=== PATIENT | male | born 1965 | race Caucasian/White ===

== ENCOUNTER 2016-10-01 11:04 | Inpatient (IN) ==
--- NOTE | 2016-10-01 11:34 | Emergency Department Note ---
Disposition Clinical Impression: Hyperglycemia, Weakness Disposition: Admitted As Inpatient Condition: Good Referrals: Nirali Russell, MUSEUM OR ZOO DIRECTOR [Primary Care Provider] - Forms: ED Satisfaction Letter Time of Disposition: 13:51 (abprateek de jesus) Weakness HPI - General Chief complaint: ED Altered Mental Status Stated complaint: found on floor in home/ LKW 2 days ago Time Seen by Provider: 10/01/16 11:09 Source: EMS Mode of arrival: EMS Limitations: altered mental status Nursing Notes Reviewed: Yes Vital Signs Reviewed: Yes - History of Present Illness HPI Narrative: Patient last seen last known well Jeet 2 weeks ago friends and family were concerned without check on him found him lying on the floor emaciated wasting patient admits that she has not been elevated has not felt well denies any physical trauma states he has missed insulin he denies additional complaints at this time other than being weak unable to get up and move about Pt Subjective Complaint: generalized weakness/fatigue Onset (ago): week(s) Duration: gradually worsening Location: generalized Pain Severity: none Pain Scale: 0 Improves with: none Worsens with: none Associated symptoms: Reports: loss of appetite, nausea/vomiting, myalgias. Denies: chest pain, confusion, dark stools, diaphoresis, dysuria, easy bruising , fever/chills, headaches, rash, shortness of breath, syncope - Related Data Home Medications Medication Instructions Recorded Confirmed Insulin Glargine,Hum.rec.anlog 30 units SQ HS 04/18/16 06/07/16 [Lantus Solostar] Tiotropium [Spiriva] 1 cap IH DAILY 04/18/16 06/07/16 metFORMIN [Glucophage] 500 mg PO BIDWM 04/18/16 06/07/16 Albuterol Sulfate [Ventolin Hfa] 2 puff IH Q4H PRN 06/07/16 06/07/16 Gabapentin [Neurontin] 400 mg PO TID 06/07/16 06/07/16 HYDROcodone/Acet 10/325 mg [[place] 1 tab PO Q12H PRN 06/07/16 06/07/16 10-325 mg] Insulin ASPART [Novolog Flexpen] 0 unit SQ TIDWM 06/07/16 06/07/16 Omeprazole [PriLOSEC] 20 mg PO DAILY 06/07/16 06/07/16 Allergies Allergy/AdvReac Type Severity Reaction Status Date / Time No Known Allergies Allergy Verified 06/07/16 07:36 All systems ED: reviewed and negative except as stated. Constitutional: Reports: weakness. Denies: fever, chills Eyes: Denies: eye pain ENT ED: Denies: ear pain, throat pain Cardiovascular: Denies: chest pain, palpitations, dyspnea on exertion Respiratory: Denies: cough, dyspnea, wheezes Gastrointestinal: Denies: abdominal pain, nausea, vomiting Genitourinary: Denies: urgency, dysuria, frequency Musculoskeletal: Denies: back pain Integumentary: Denies: lesions Neurological: Reports: weakness. Denies: headache Psychiatric: Denies: anxiety Endocrine: Reports: fatigue, polydipsia, polyuria Hematological/Lymphatic: Denies: easy bleeding Allergic/Immunologic: Denies: facial swelling Past Medical History - Past Medical History Attestation: Yes The following information was validated with the patient. Source: patient, old records reviewed, nursing notes reviewed Medical history: Reports: asthma, COPD, diabetes, GERD, hyperlipidemia Surgical history: Reports: no surgical history Psychiatric history: Reports: anxiety, depression - Social History Smoking Status: Current every day smoker Smokeless Tobacco Status: No Alcohol use: Reports: none Drug use: Reports: none Physical Exam - General Limitations: altered mental status General appearance: alert, in no apparent distress, cachectic - Head Head exam: atraumatic, normocephalic, normal inspection - Eye Eye exam: Present: normal appearance, PERRL, EOMI - ENT ENT exam: normal exam, normal oropharynx, mucous membranes moist, normal external ear exam - Neck Neck exam: Present: normal inspection, full ROM, trachea midline - Chest Chest inspection: Present: normal inspection, symmetric chest wall rise - Respiratory Respiratory exam: Present: normal lung sounds bilaterally - Cardiovascular Cardiovascular exam: Present: regular rate, normal rhythm, normal heart sounds - Abdominal Exam Abdominal exam: Present: soft, Non-Tender, normal bowel sounds, other (schaphoid ) - Extremities Exam Extremities exam: Present: normal inspection, full ROM, normal capillary refill. Absent: tenderness, joint swelling - Expanded Lower Extremity Exam Neurovascular/Tendon exam: Present: normal capillary refill, normal fine/light touch Gait: observed and normal - Back Exam Back exam: Present: normal inspection, full ROM. Absent: muscle spasm - Neurological Exam Neurological exam: Present: alert, oriented X3, CN II-XII intact - Psychiatric Psychiatric exam: Present: normal affect, normal mood - Skin Skin exam: Present: warm, dry, intact, normal color Course Course Narrative: Patient was seen and examined patient was given multiple blankets and warm, patient's actually been very cooperative asked for something to eat and transferred to [facility] for further management to get his diabetes under control Dr Estrada agreed Vital Signs Temperature 98.9 F 10/01/16 11:07 Pulse Rate 87 10/01/16 11:07 Respiratory Rate 18 10/01/16 11:07 Blood Pressure 104/82 10/01/16 11:07 O2 Sat by Pulse Oximetry 98 10/01/16 11:07 Temperature 98.9 F 10/01/16 11:07 Pulse Rate 76 10/01/16 13:07 Respiratory Rate 18 10/01/16 13:07 Blood Pressure 125/84 10/01/16 13:07 O2 Sat by Pulse Oximetry 98 10/01/16 13:07 Oxygen Delivery Oxygen Delivery Room Air Weakness - MDM Narrative Medical decision making narrative: hyperglycemia - Differential Diagnosis Differential Diagnosis: Likely: sepsis/infection, dehydration, medication effect , stroke, metabolic, thyroid/endocrine disorder - Medical Records Medical records reviewed: Yes I reviewed the patient's medical records. - Lab Data Lab results reviewed: Yes I reviewed the patient's lab results. Result diagrams: 10/01/16 11:40 10/01/16 11:40 Lab Results 10/01/16 10/01/16 10/01/16 Range/Units 11:30 11:30 11:40 WBC 7.6 (4.3-11.1) K/mcL RBC 5.03 (4.19-5.50) M/mcL Hgb 16.5 (12.9-16.9) g/dL Hct 46.7 (37.5-50.1) % MCV 92.8 (83.0-100.0) fL MCH 32.8 (28.0-33.3) pg MCHC 35.3 (31.6-35.5) g/dL RDW 11.6 (11.5-14.5) % Plt Count 275 (140-400) K/mcL MPV 9.5 (9.4-12.4) fL Immature Gran % 0.3 (0-4) % Seg Neutrophils % 63.9 % Lymphocytes % 30.6 % Monocytes % 4.5 % Eosinophils % 0.3 % Basophils % 0.4 % Neutrophils # 4.8 (1.6-8.9) K/mcL Lymphocytes # 2.3 (0.6-4.6) K/mcL Monocytes # 0.3 (0.0-1.3) K/mcL Eosinophils # 0.0 (0.0-0.6) K/mcL Basophils # 0.0 (0.0-0.2) K/mcL PT (9.4-12.1) Seconds INR APTT (26.0-36.0) Seconds VBG Lactic Acid (0.5-2.2) mmol/L Sodium (136-145) mEq/L Potassium (3.5-4.5) mEq/L Chloride (98-109) mEq/L Carbon Dioxide (19-29) mEq/L BUN (8-26) mg/dL Creatinine (0.72-1.25) mg/dL Est GFR ( Amer) (> 60) Est GFR (Non-Af Amer) (> 60) BUN/Creatinine Ratio (6-26) Glucose (70-99) mg/dL Calculated Osmolality (280-300) Calcium (8.6-10.8) mg/dL Total Bilirubin (0.2-1.2) mg/dL AST (5-34) Units/L ALT (0-55) Units/L Alkaline Phosphatase (38-126) Units/L Troponin I (0-0.03) ng/mL B-Natriuretic Peptide (0-100) pg/mL Serum Total Protein (6.0-8.3) g/dL Albumin (3.5-5.0) g/dL Globulin (2.4-3.5) g/dL Albumin/Globulin Ratio (1.1-2.2) Beta-Hydroxybutyric Acd (0.02-0.27) mmol/L TSH (0.350-4.840) mcIU/mL Urine Color Yellow (Yellow) Urine Clarity Clear (Clear) Urine pH 5.0 (5.0-8.0) pH Units Ur Specific [place] 1.010 (1.010-1.025) Urine Protein Negative (Neg-Trace) mg/dL Urine Glucose (UA) 500 H (Normal) mg/dL Urine Ketones 40 H (Negative) mg/dL Urine Blood Small H (Negative) Urine Nitrite Negative (Negative) Urine Bilirubin Negative (Negative) Urine Urobilinogen Normal (Normal) mg/dL Ur Leukocyte Esterase Negative (Negative) Urine Microscopic RBC 0-3 (0-3) per hpf Urine Microscopic WBC Test Not Performed Ur Squamous Epith Cells Few (None-Few) per lpf Urine Bacteria Few (None-Few) per hpf Urine Mucus Few (Few) Ur Culture Indicated? NO (NO) Urine Opiates Screen Positive H (Yrafqo=221) ng/mL Ur Oxycodone Screen Negative (Cutoff= 100) ng/mL Ur Barbiturates Screen Negative (Kxhpfj=503) ng/mL Ur Phencyclidine Scrn Negative (Cutoff=25) ng/mL Ur Amphetamines Screen Negative (Iaphvt=5478) ng/mL U Benzodiazepines Scrn Negative (Rkesov=565) ng/mL Urine Cocaine Screen Negative (Cutoff= 300) ng/mL U Marijuana (THC) Screen Negative (Cutoff = 50) ng/mL 10/01/16 10/01/16 10/01/16 Range/Units 11:40 11:40 11:40 WBC (4.3-11.1) K/mcL RBC (4.19-5.50) M/mcL Hgb (12.9-16.9) g/dL Hct (37.5-50.1) % MCV (83.0-100.0) fL MCH (28.0-33.3) pg MCHC (31.6-35.5) g/dL RDW (11.5-14.5) % Plt Count (140-400) K/mcL MPV (9.4-12.4) fL Immature Gran % (0-4) % Seg Neutrophils % % Lymphocytes % % Monocytes % % Eosinophils % % Basophils % % Neutrophils # (1.6-8.9) K/mcL Lymphocytes # (0.6-4.6) K/mcL Monocytes # (0.0-1.3) K/mcL Eosinophils # (0.0-0.6) K/mcL Basophils # (0.0-0.2) K/mcL PT 10.7 (9.4-12.1) Seconds INR 1.0 APTT 26.9 (26.0-36.0) Seconds VBG Lactic Acid (0.5-2.2) mmol/L Sodium (136-145) mEq/L Potassium (3.5-4.5) mEq/L Chloride (98-109) mEq/L Carbon Dioxide (19-29) mEq/L BUN (8-26) mg/dL Creatinine (0.72-1.25) mg/dL Est GFR ( Amer) (> 60) Est GFR (Non-Af Amer) (> 60) BUN/Creatinine Ratio (6-26) Glucose (70-99) mg/dL Calculated Osmolality (280-300) Calcium (8.6-10.8) mg/dL Total Bilirubin (0.2-1.2) mg/dL AST (5-34) Units/L ALT (0-55) Units/L Alkaline Phosphatase (38-126) Units/L Troponin I (0-0.03) ng/mL B-Natriuretic Peptide 23 (0-100) pg/mL Serum Total Protein (6.0-8.3) g/dL Albumin (3.5-5.0) g/dL Globulin (2.4-3.5) g/dL Albumin/Globulin Ratio (1.1-2.2) Beta-Hydroxybutyric Acd (0.02-0.27) mmol/L TSH (0.350-4.840) mcIU/mL Urine Color (Yellow) Urine Clarity (Clear) Urine pH (5.0-8.0) pH Units Ur Specific [place] (1.010-1.025) Urine Protein (Neg-Trace) mg/dL Urine Glucose (UA) (Normal) mg/dL Urine Ketones (Negative) mg/dL Urine Blood (Negative) Urine Nitrite (Negative) Urine Bilirubin (Negative) Urine Urobilinogen (Normal) mg/dL Ur Leukocyte Esterase (Negative) Urine Microscopic RBC (0-3) per hpf Urine Microscopic WBC Ur Squamous Epith Cells (None-Few) per lpf Urine Bacteria (None-Few) per hpf Urine Mucus (Few) Ur Culture Indicated? (NO) Urine Opiates Screen (Niztah=142) ng/mL Ur Oxycodone Screen (Cutoff= 100) ng/mL Ur Barbiturates Screen (Suztbh=871) ng/mL Ur Phencyclidine Scrn (Cutoff=25) ng/mL Ur Amphetamines Screen (Twfkou=5522) ng/mL U Benzodiazepines Scrn (Pypikc=867) ng/mL Urine Cocaine Screen (Cutoff= 300) ng/mL U Marijuana (THC) Screen (Cutoff = 50) ng/mL 10/01/16 10/01/16 10/01/16 Range/Units 11:40 11:40 11:40 WBC (4.3-11.1) K/mcL RBC (4.19-5.50) M/mcL Hgb (12.9-16.9) g/dL Hct (37.5-50.1) % MCV (83.0-100.0) fL MCH (28.0-33.3) pg MCHC (31.6-35.5) g/dL RDW (11.5-14.5) % Plt Count (140-400) K/mcL MPV (9.4-12.4) fL Immature Gran % (0-4) % Seg Neutrophils % % Lymphocytes % % Monocytes % % Eosinophils % % Basophils % % Neutrophils # (1.6-8.9) K/mcL Lymphocytes # (0.6-4.6) K/mcL Monocytes # (0.0-1.3) K/mcL Eosinophils # (0.0-0.6) K/mcL Basophils # (0.0-0.2) K/mcL PT (9.4-12.1) Seconds INR APTT (26.0-36.0) Seconds VBG Lactic Acid 1.9 (0.5-2.2) mmol/L Sodium 138 (136-145) mEq/L Potassium 4.4 (3.5-4.5) mEq/L Chloride 99 (98-109) mEq/L Carbon Dioxide 25 (19-29) mEq/L BUN 14 (8-26) mg/dL Creatinine 0.81 (0.72-1.25) mg/dL Est GFR ( Amer) > 60 (> 60) Est GFR (Non-Af Amer) > 60 (> 60) BUN/Creatinine Ratio 17 (6-26) Glucose 402 H (70-99) mg/dL Calculated Osmolality 303 H (280-300) Calcium 9.0 (8.6-10.8) mg/dL Total Bilirubin 0.4 (0.2-1.2) mg/dL AST 15 (5-34) Units/L ALT 35 (0-55) Units/L Alkaline Phosphatase 102 (38-126) Units/L Troponin I 0.00 (0-0.03) ng/mL B-Natriuretic Peptide (0-100) pg/mL Serum Total Protein 6.6 (6.0-8.3) g/dL Albumin 3.3 L (3.5-5.0) g/dL Globulin 3.3 (2.4-3.5) g/dL Albumin/Globulin Ratio 1.0 L (1.1-2.2) Beta-Hydroxybutyric Acd (0.02-0.27) mmol/L TSH 0.558 (0.350-4.840) mcIU/mL Urine Color (Yellow) Urine Clarity (Clear) Urine pH (5.0-8.0) pH Units Ur Specific [place] (1.010-1.025) Urine Protein (Neg-Trace) mg/dL Urine Glucose (UA) (Normal) mg/dL Urine Ketones (Negative) mg/dL Urine Blood (Negative) Urine Nitrite (Negative) Urine Bilirubin (Negative) Urine Urobilinogen (Normal) mg/dL Ur Leukocyte Esterase (Negative) Urine Microscopic RBC (0-3) per hpf Urine Microscopic WBC Ur Squamous Epith Cells (None-Few) per lpf Urine Bacteria (None-Few) per hpf Urine Mucus (Few) Ur Culture Indicated? (NO) Urine Opiates Screen (Cuslaa=847) ng/mL Ur Oxycodone Screen (Cutoff= 100) ng/mL Ur Barbiturates Screen (Grzcys=630) ng/mL Ur Phencyclidine Scrn (Cutoff=25) ng/mL Ur Amphetamines Screen (Xyagni=3276) ng/mL U Benzodiazepines Scrn (Wruopm=087) ng/mL Urine Cocaine Screen (Cutoff= 300) ng/mL U Marijuana (THC) Screen (Cutoff = 50) ng/mL 10/01/16 Range/Units 11:40 WBC (4.3-11.1) K/mcL RBC (4.19-5.50) M/mcL Hgb (12.9-16.9) g/dL Hct (37.5-50.1) % MCV (83.0-100.0) fL MCH (28.0-33.3) pg MCHC (31.6-35.5) g/dL RDW (11.5-14.5) % Plt Count (140-400) K/mcL MPV (9.4-12.4) fL Immature Gran % (0-4) % Seg Neutrophils % % Lymphocytes % % Monocytes % % Eosinophils % % Basophils % % Neutrophils # (1.6-8.9) K/mcL Lymphocytes # (0.6-4.6) K/mcL Monocytes # (0.0-1.3) K/mcL Eosinophils # (0.0-0.6) K/mcL Basophils # (0.0-0.2) K/mcL PT (9.4-12.1) Seconds INR APTT (26.0-36.0) Seconds VBG Lactic Acid (0.5-2.2) mmol/L Sodium (136-145) mEq/L Potassium (3.5-4.5) mEq/L Chloride (98-109) mEq/L Carbon Dioxide (19-29) mEq/L BUN (8-26) mg/dL Creatinine (0.72-1.25) mg/dL Est GFR ( Amer) (> 60) Est GFR (Non-Af Amer) (> 60) BUN/Creatinine Ratio (6-26) Glucose (70-99) mg/dL Calculated Osmolality (280-300) Calcium (8.6-10.8) mg/dL Total Bilirubin (0.2-1.2) mg/dL AST (5-34) Units/L ALT (0-55) Units/L Alkaline Phosphatase (38-126) Units/L Troponin I (0-0.03) ng/mL B-Natriuretic Peptide (0-100) pg/mL Serum Total Protein (6.0-8.3) g/dL Albumin (3.5-5.0) g/dL Globulin (2.4-3.5) g/dL Albumin/Globulin Ratio (1.1-2.2) Beta-Hydroxybutyric Acd 1.51 H (0.02-0.27) mmol/L TSH (0.350-4.840) mcIU/mL Urine Color (Yellow) Urine Clarity (Clear) Urine pH (5.0-8.0) pH Units Ur Specific [place] (1.010-1.025) Urine Protein (Neg-Trace) mg/dL Urine Glucose (UA) (Normal) mg/dL Urine Ketones (Negative) mg/dL Urine Blood (Negative) Urine Nitrite (Negative) Urine Bilirubin (Negative) Urine Urobilinogen (Normal) mg/dL Ur Leukocyte Esterase (Negative) Urine Microscopic RBC (0-3) per hpf Urine Microscopic WBC Ur Squamous Epith Cells (None-Few) per lpf Urine Bacteria (None-Few) per hpf Urine Mucus (Few) Ur Culture Indicated? (NO) Urine Opiates Screen (Funcgb=818) ng/mL Ur Oxycodone Screen (Cutoff= 100) ng/mL Ur Barbiturates Screen (Azntdc=259) ng/mL Ur Phencyclidine Scrn (Cutoff=25) ng/mL Ur Amphetamines Screen (Uoecrc=4038) ng/mL U Benzodiazepines Scrn (Snmtyz=734) ng/mL Urine Cocaine Screen (Cutoff= 300) ng/mL U Marijuana (THC) Screen (Cutoff = 50) ng/mL - Radiology Data Radiology results reviewed: Yes I reviewed the patient's radiology results. ITS Impressions Chest X-Ray 10/01/16 11:27 IMPRESSION: No acute process. D/ / 10/01/2016 12:48:16 Jonnathan Davis MD / Yolette Forrest Interpreting Provider: Jonnathan Davis MD Head CT 10/01/16 11:27 IMPRESSION: No hemorrhage or mass noted. 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 EKG results narrative: Sinus rhythm rate 82 [place] 137 QRS 89 QT 368 axis -87 Critical Care Time Critical Care Time: No
[2016-10-01 11:42] LABS: Bilirubin,Urine Negative (Negative); Blood,Urine Small (Negative); Clarity,Urine Clear (Clear); Color,Urine Yellow (Yellow); Glucose,Urine (UA) 500 mg/dL (Normal); Ketones,Urine 40 mg/dL (Negative); Leukocyte Esterase,Urine Negative (Negative); Nitrite,Urine Negative (Negative); Protein,Urine Negative (Neg-Trace); Urobilinogen,Urine Normal (Normal)
[2016-10-01 11:48] LABS: RBC,Urine 0-3 per hpf (0-3)
[2016-10-01 11:48] LABS: Basophils % 0.4 %; Eosinophils % 0.3 %; Hematocrit 46.7 % (37.5-50.1); Hemoglobin 16.5 g/dL (12.9-16.9); Immature Granulocytes % 0.3 % (0-4); Lymphocytes # 2.3 K/mcL (0.6-4.6); Lymphocytes % 30.6 %; Mean Corpuscular HGB Conc 35.3 g/dL (31.6-35.5); Mean Corpuscular Hemoglobin 32.8 pg (28.0-33.3); Mean Corpuscular Volume 92.8 fL (83.0-100.0); Mean Platelet Volume 9.5 fL (9.4-12.4); Monocytes # 0.3 K/mcL (0.0-1.3); Monocytes % 4.5 %; Neutrophils # 4.8 K/mcL (1.6-8.9); Platelet Count 275 K/mcL (140-400); Red Blood Count 5.03 M/mcL (4.19-5.50); Red Cell Distribution Width 11.6 % (11.5-14.5); Segmented Neutrophils % 63.9 %
[2016-10-01 11:49] LABS: Bacteria,Urine Few per hpf (None-Few); Mucus,Urine Few (Few); Squamous Epithelial Cell,Urine Few per lpf (None-Few)
[2016-10-01 11:54] LABS: Amphetamine Screen,Urine Negative ng/mL (Cutoff=1000); Barbiturate Screen,Urine Negative ng/mL (Cutoff=200); Benzodiazepines Screen,Urine Negative ng/mL (Cutoff=200); Cannabinoid Screen,Urine Negative ng/mL (Cutoff = 50); Cocaine Screen,Urine Negative ng/mL (Cutoff= 300); Opiate Screen,Urine Positive ng/mL (Cutoff=300); Phencyclidine Screen,Urine Negative ng/mL (Cutoff=25)
[2016-10-01 11:55] LABS: Prothrombin Time 10.7 Seconds (9.4-12.1)
[2016-10-01 12:03] LABS: Alanine Aminotransferase 35 Units/L (0-55); Albumin 3.3 g/dL (3.5-5.0); Alkaline Phosphatase 102 Units/L (38-126); Aspartate Amino Transferase 15 Units/L (5-34); BUN/Creatinine Ratio 17 (6-26); Bilirubin,Total 0.4 mg/dL (0.2-1.2); Blood Urea Nitrogen 14 mg/dL (8-26); Carbon Dioxide 25 mEq/L (19-29); Chloride 99 mEq/L (98-109); Globulin 3.3 g/dL (2.4-3.5); Glucose 402 mg/dL (70-99); Osmolality,Calculated 303 (280-300); Potassium 4.4 mEq/L (3.5-4.5); Sodium 138 mEq/L (136-145); Total Protein 6.6 g/dL (6.0-8.3); eGFR For African Americans > 60 (> 60); eGFR For Non-African Americans > 60 (> 60)
[2016-10-01] MEDS ORDERED: 0.9 % Sodium Chloride 1,000 ML IVC ONE (12:19)
[2016-10-01 12:23] LABS: Thyroid Stimulating Hormone 0.558 mcIU/mL (0.350-4.840)
[2016-10-01] MEDS ORDERED: *HR* HYDROcodone/Acet 10/325 mg TABLET PO PRN (14:20)
[2016-10-01] MEDS ORDERED: *HR* Dextrose 50 % in Water (Syg) 50 ML SYRINGE IVP PRN (14:20)
[2016-10-01] MEDS ORDERED: Dextrose Gel 15 GM PO PRN ×2 (14:20)
[2016-10-01] MEDS ORDERED: Ondansetron ODT 4 MG TAB.RAPDIS SL PRN (14:20)
[2016-10-01] MEDS ORDERED: Naloxone 0.4 MG/ML INJ IVP PRN (14:20)
[2016-10-01] MEDS ORDERED: D5% in Water 1,000 ML IVC PRN (14:20)
[2016-10-01] MEDS ORDERED: Gabapentin 400 MG CAPSULE PO SCH (15:00)
[2016-10-01] MEDS: 0.9 % Sodium Chloride 1,000 ML IVC SCH ×2 (15:55→23:30)
[2016-10-01] MEDS: *HR* Metformin 500 MG TABLET PO SCH (17:19)
[2016-10-01] MEDS: Insulin LISPRO 300 UNITS/3 ML VIAL SQ SCH (17:19)
[2016-10-01] MEDS: *HR* Morphine Sulfate SR (12 HR) 30 MG TABLET.ER PO SCH (20:23)
[2016-10-01] MEDS: Insulin DETEMIR 100 UNIT/ML X5UNITS SQ SCH (20:24)
[2016-10-01] MEDS: Pregabalin 75 MG CAPSULE PO SCH (20:24)
[2016-10-02 05:30] LABS: Basophils % 0.4 %; Eosinophils # 0.1 K/mcL (0.0-0.6); Hematocrit 41.6 % (37.5-50.1); Hemoglobin 14.8 g/dL (12.9-16.9); Immature Granulocytes % 0.5 % (0-4); Mean Corpuscular HGB Conc 35.6 g/dL (31.6-35.5); Mean Corpuscular Hemoglobin 32.7 pg (28.0-33.3); Mean Platelet Volume 9.5 fL (9.4-12.4); Monocytes # 0.6 K/mcL (0.0-1.3); Monocytes % 6.1 %; Neutrophils # 6.6 K/mcL (1.6-8.9); Platelet Count 255 K/mcL (140-400); Red Blood Count 4.52 M/mcL (4.19-5.50); Red Cell Distribution Width 11.5 % (11.5-14.5)
[2016-10-02 05:37] LABS: Prothrombin Time 10.6 Seconds (9.4-12.1)
[2016-10-02 05:39] LABS: Activated Partial Thrombo Time 27.4 Seconds (26.0-36.0)
[2016-10-02 05:48] LABS: BUN/Creatinine Ratio 32 (6-26); Blood Urea Nitrogen 20 mg/dL (8-26); Calcium 8.6 mg/dL (8.6-10.8); Carbon Dioxide 23 mEq/L (19-29); Chloride 101 mEq/L (98-109); Glucose 247 mg/dL (70-99); Osmolality,Calculated 291 (280-300); Potassium 4.2 mEq/L (3.5-4.5); Sodium 135 mEq/L (136-145); eGFR For African Americans > 60 (> 60); eGFR For Non-African Americans > 60 (> 60)
[2016-10-02] MEDS: Insulin LISPRO 300 UNITS/3 ML VIAL SQ SCH ×3 (07:50→16:38)
[2016-10-02] MEDS: *HR* Morphine Sulfate SR (12 HR) 30 MG TABLET.ER PO SCH ×3 (08:22→20:19)
[2016-10-02] MEDS: *HR* Metformin 500 MG TABLET PO SCH ×2 (08:22→16:42)
[2016-10-02] MEDS: Pregabalin 75 MG CAPSULE PO SCH ×2 (08:22→20:19)
[2016-10-02] MEDS: Tiotropium 18 MCG inhalation IH SCH (10:09)
--- NOTE | 2016-10-02 10:10 | Internal Med History&Physical ---
Date of Encounter: 10/02/16 Time of Encounter: 09:35 Assessment and Plan (1) Weakness Current visit: Yes Status: Acute Will order CK and sedimentation rate. Will order physical therapy and occupational therapy evaluation. (2) Weight loss Current visit: Yes Status: Acute Will order CT of chest, abdomen, and pelvis. (3) DM type 2 (diabetes mellitus, type 2) Current visit: Yes Status: Chronic We will order hemoglobin A1c. Do Accu-Cheks with SSI. Qualifiers: Diabetes mellitus complication status: without complication Diabetes mellitus nursing home insulin use: with vermin exterminator use Qualified Code(s): E11.9 - Type 2 diabetes mellitus without complications; Z79.4 - alf (current) use of insulin (4) COPD (chronic obstructive pulmonary disease) Current visit: Yes Status: Chronic Will continue inhalers. He will have room air oximeter checked prior to discharge. Qualifiers: COPD type: unspecified COPD Qualified Code(s): J44.9 - Chronic obstructive pulmonary disease, unspecified Internal Medicine - H&P: HPI Chief complaint: Weakness, weight loss Admitted From: Home Plans for Post Hospital Care: Home History of present illness: Mr. Carlin is a 50 year old male who was brought to emergency room after being found lying on the floor in his home by friends and family. He does not recall the circumstances of getting to the floor. He states he has had progressive weakness over the last 6 months and uses a cane and walker to ambulate in his trailer. He does not really leave the trailer much to go outdoors. He was evaluated in emergency room and admitted to [facility] for ongoing care needs. He reports he has lost approximately 50 pounds of weight in the last 6 months, unintentionally. He denies fevers chills or night sweats. He reports he has had increasing constipation and some discomfort in his right abdominal area but has not had evaluation for this. He states his weakness involves his arms and legs. He states he has not drunk alcohol in approximately one year but previously was a moderate drinker. He denies street of IV drug use. He denies strokes or seizures or other neurologic problems. Past Med Surg Social Fam HX - Past Medical History Medical history: asthma, COPD, diabetes, GERD, hyperlipidemia Psychiatric history: anxiety, depression - Past Surgical History Surgical History: no surgical history - Social History Smoking Status: Current every day smoker Packs per day: 1 Smokeless Tobacco Status: No Alcohol use: none Drug use: none Internal Medicine - H&P: Meds Insulin Glargine,Hum.rec.anlog [Lantus Solostar] 50 units SQ HS 04/18/16 [ History] Tiotropium [Spiriva] 1 cap IH DAILY PRN 04/18/16 [History] metFORMIN [Glucophage] 500 mg PO BIDWM 04/18/16 [History] Albuterol Sulfate [Ventolin Hfa] 2 puff IH Q4H PRN 06/07/16 [History] Gabapentin [Neurontin] 400 mg PO TID 06/07/16 [History] Insulin ASPART [Novolog Flexpen] 0 unit SQ TIDWM 06/07/16 [History] Omeprazole [PriLOSEC] 20 mg PO DAILY 06/07/16 [History] Morphine Sulfate 30 mg PO TID 10/01/16 [History] Pregabalin [Lyrica] 75 mg PO BID 10/01/16 [History] Allergies No Known Allergies Allergy (Verified 06/07/16 07:36) All Systems PM: A 10-system review of systems was performed and is negative for pertinent findings except as documented above in the HPI. Review of systems: Gen.: He reports weight loss as per above Cardiovascular: He denies hypertension MA heart failure DVT or pulmonary embolism. He states he occasionally gets chest pain ambulating in his trailer. Respiratory: His smoked since age 11 up to 2 packs per day. He states he has had a nonproductive cough for several weeks to months. He reports being diagnosed with COPD in the past but does not recall when PFTs were done. He does not use home oxygen. GI: He has had a "tightness" in his right lower lateral abdominal area. He reports increasing constipation over the past few months but denies melena or hematochezia. He denies disorders of his liver gallbladder or exocrine pancreas : He denies hematuria dysuria or kidney stones Neurologic: He denies large distribution strokes or seizures. Endocrine: He was diagnosed with DM 2 approximately 5 years ago. He denies thyroid disease or hyperlipidemia Hematology/oncology: He denies blood disorders cancers or anemia Psychiatric: He reports anxiety and depression. He has been seen at mental health clinic in the past but does not presently take antipsychotic drugs. Musk skeletal: He denies arthritis gout or other bone joint or muscle disorders other than generalized weakness. - Constitutional Vitals: Temp Pulse Resp BP Pulse Ox 98.4 F 98 16 134/85 93 10/02/16 06:58 10/02/16 06:58 10/02/16 06:58 10/02/16 06:58 10/02/16 06:58 Exam: Gen.: He is well-developed lean male lying in bed who appears in minimal distress HEENT: Head is atraumatic and normocephalic. Eyes: EOMI. There is no scleral icterus. Mouth: Mucosa is moist. Neck: Supple and nontender. There is no thyromegaly or adenopathy noted. Heart: Regular without murmurs gallops or ectopics. Lungs: No wheezes or crackles are heard. Abdomen: Soft and nontender. No masses or guarding are noted. Extremities: There is no cyanosis edema or clubbing noted. Dorsalis pedis and posttibial pulses are 1-2 over 2 bilaterally. Neurologic: Mental status: He is able to answer questions appropriately and seems to be a fair to good historian. He answers many questions with "I do not know". Cranial nerves: Smile is symmetric. Forehead wrinkles bilaterally. Tongue protrudes midline. EOMI. Motor: There is no pronator drift. He cannot lift his legs off the bed. He cannot dorsiflex or plantar flex his ankles well. DTR's are virtually absent at patella and Achilles bilaterally. Rapid finger movement of his hands shows symmetric bilateral slowing. Cerebellar: Finger to nose is intact bilaterally. Skin: Warm and dry. He has many tattoos on his arms and legs and torso. Internal Med - H&P Results - Labs CBC & Chem 7: 10/02/16 05:00 10/02/16 05:00 Labs: Short CBC 10/02/16 Range/Units 05:00 WBC 10.5 (4.3-11.1) K/mcL Hgb 14.8 D (12.9-16.9) g/dL Hct 41.6 (37.5-50.1) % Plt Count 255 (140-400) K/mcL Neutrophils # 6.6 (1.6-8.9) K/mcL BMP 10/02/16 05:00 Sodium 135 L Potassium 4.2 Chloride 101 Carbon Dioxide 23 BUN 20 Creatinine 0.63 L Glucose 247 H Calcium 8.6
[2016-10-02] MEDS: 0.9 % Sodium Chloride 1,000 ML IVC SCH ×3 (10:42→23:43)
[2016-10-02] MEDS: Insulin DETEMIR 100 UNIT/ML X5UNITS SQ SCH (20:19)
[2016-10-03] MEDS: Pregabalin 75 MG CAPSULE PO SCH ×2 (07:56→22:06)
[2016-10-03] MEDS: *HR* Metformin 500 MG TABLET PO SCH ×2 (07:57→16:28)
[2016-10-03] MEDS: Insulin LISPRO 300 UNITS/3 ML VIAL SQ SCH ×4 (07:58→22:06)
[2016-10-03 08:29] LABS: Estimated Average Glucose > 355 mg/dl; Hemoglobin A1C >= 14.1 %
[2016-10-03] MEDS: *HR* Morphine Sulfate SR (12 HR) 30 MG TABLET.ER PO SCH ×3 (09:40→22:06)
[2016-10-03] MEDS: Tiotropium 18 MCG inhalation IH SCH (09:47)
--- NOTE | 2016-10-03 10:29 | Internal Med Progress Note ---
Date of Encounter: 10/03/16 Time of Encounter: 10:20 - Assessment and plan (1) Weakness Current Visit: Yes Status: Acute Assessment and plan: October 03. Awaiting PT and OT evaluation. (2) Weight loss Current Visit: Yes Status: Acute Assessment and plan: October 03. CT did not show evidence of malignancy. Hemoglobin A1c was significantly elevated. Suspect weight loss due at least in part to uncontrolled hyperglycemia. (3) DM type 2 (diabetes mellitus, type 2) Current Visit: Yes Status: Chronic Assessment and plan: October 03. Hemoglobin A1c greater than 14.1%. He is uncertain of his home dose of Lantus. He states he misses his Lantus dose a few times a week. Will increase Levemir to 45 units daily at bedtime. 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 Continue inhalers. Check room air oximetry before discharge. Qualifiers: COPD type: unspecified COPD Qualified Code(s): J44.9 - Chronic obstructive pulmonary disease, unspecified - Subjective Interval history: October 03. He has no new complaints. He states he feels tired. He reports he has not had a bowel movement in a week. - Constitutional Vitals: Temp Pulse Resp BP Pulse Ox 98.0 F 79 16 110/76 94 10/03/16 06:42 10/03/16 06:42 10/03/16 06:42 10/03/16 06:42 10/03/16 08:22 Exam: He is resting comfortably in bed and appears in no acute distress. He is slightly more awake and talkative today. I reviewed his medications, lab results, and CT report. Internal Medicine: Result - Labs CBC & Chem 7: 10/02/16 05:00 10/02/16 05:00 - ABG Interpretation ABG results: PT/INR, D-dimer PT 10.6 Seconds (9.4-12.1) 10/02/16 05:00 - Impressions Impressions Abdomen/Pelvis CT 10/02/16 10:24 IMPRESSION: Study is significantly limited by the lack of IV and oral contrast as well as the lack of fat in this patient who is extremely cachectic. There is dependent ground-glass and nodular opacities at the lung bases associated with bronchiectasis and minimal debris within the trachea suggestive of an inflammatory or infectious process. Consider the possibility of aspiration. No obvious abnormality otherwise noted within the chest, abdomen or pelvis. D/ / 10/02/2016 11:44:41 Jonnathan Davis MD / gonzalo Interpreting Provider: Jonnathan Davis MD Chest CT 10/02/16 10:24 IMPRESSION: Study is significantly limited by the lack of IV and oral contrast as well as the lack of fat in this patient who is extremely cachectic. There is dependent ground-glass and nodular opacities at the lung bases associated with bronchiectasis and minimal debris within the trachea suggestive of an inflammatory or infectious process. Consider the possibility of aspiration. No obvious abnormality otherwise noted within the chest, abdomen or pelvis. D/ / 10/02/2016 11:44:41 Jonnathan Davis MD / gonzalo Interpreting Provider: Jonnathan Davis MD Consult Discharge Plan - Plan Referrals: Nirali Russell, SPECTROSCOPIST [Primary Care Provider] - 1 week
[2016-10-03] MEDS ORDERED: Insulin DETEMIR 100 UNIT/ML X5UNITS SQ SCH (10:33)
--- NOTE | 2016-10-03 17:47 | Electrocardiograph Report ---
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
[2016-10-03] MEDS: Insulin DETEMIR 100 UNIT/ML X5UNITS SQ SCH (22:06)
[2016-10-04] MEDS ORDERED: MOM Conc 10 ML UD.LIQ PO PRN (04:52)
[2016-10-04] MEDS: *HR* Enoxaparin 40 MG/0.4 ML SYRINGE SQ SCH ×2 (06:27→08:38)
[2016-10-04 07:04] LABS: Chol/HDL Ratio 3.6 (0-4.9); Magnesium 1.7 mg/dL (1.6-2.6)
[2016-10-04] MEDS: Insulin LISPRO 300 UNITS/3 ML VIAL SQ SCH ×4 (08:29→20:27)
[2016-10-04] MEDS: *HR* Metformin 500 MG TABLET PO SCH ×3 (08:30→16:43)
[2016-10-04] MEDS: *HR* Morphine Sulfate SR (12 HR) 30 MG TABLET.ER PO SCH ×4 (08:34→22:10)
[2016-10-04] MEDS: Pregabalin 75 MG CAPSULE PO SCH ×2 (08:34→20:26)
[2016-10-04] MEDS: Insulin DETEMIR 100 UNIT/ML X5UNITS SQ SCH ×3 (08:36→20:26)
[2016-10-04] MEDS: Tiotropium 18 MCG inhalation IH SCH (10:33)
--- NOTE | 2016-10-04 14:55 | Internal Med Progress Note ---
Date of Encounter: 10/04/16 Time of Encounter: 14:45 - Assessment and plan (1) Weakness Current Visit: Yes Status: Acute Assessment and plan: October 03. Awaiting PT and OT evaluation. October 04. Continue PT and OT intervention. He states he was able to take a few steps today. (2) Weight loss Current Visit: Yes Status: Acute Assessment and plan: October 03. CT did not show evidence of malignancy. Hemoglobin A1c was significantly elevated. Suspect weight loss due at least in part to uncontrolled hyperglycemia. (3) DM type 2 (diabetes mellitus, type 2) Current Visit: Yes Status: Chronic Assessment and plan: October 03. Hemoglobin A1c greater than 14.1%. He is uncertain of his home dose of Lantus. He states he misses his Lantus dose a few times a week. Will increase Levemir to 45 units daily at bedtime. October 04. He reported morning hypoglycemia. I will decrease Levemir to 18 units twice a day. Qualifiers: Diabetes mellitus complication status: without complication Diabetes mellitus half-way insulin use: with senior marketing associate use Qualified Code(s): E11.9 - Type 2 diabetes mellitus without complications; Z79.4 - longterm (current) use of insulin (4) COPD (chronic obstructive pulmonary disease) Current Visit: Yes Status: Chronic Assessment and plan: October 03. Continue inhalers. Check room air oximetry before discharge. Qualifiers: COPD type: unspecified COPD Qualified Code(s): J44.9 - Chronic obstructive pulmonary disease, unspecified - Subjective Interval history: October 03. He has no new complaints. He states he feels tired. He reports he has not had a bowel movement in a week. October 04. He has no new complaints. - Constitutional Vitals: Temp Pulse Resp BP Pulse Ox 98.3 F 98 16 105/72 94 10/04/16 11:15 10/04/16 11:15 10/04/16 11:15 10/04/16 11:15 10/04/16 11:15 Exam: He is resting comfortably in bed and appears in no acute distress. His affect is bright and cheerful. I reviewed his medications and lab results. Internal Medicine: Result - Labs CBC & Chem 7: 10/02/16 05:00 10/02/16 05:00 - ABG Interpretation ABG results: PT/INR, D-dimer PT 10.6 Seconds (9.4-12.1) 10/02/16 05:00 Consult Discharge Plan - Plan Referrals: Nirali Russell, ISAIAH [Primary Care Provider] - 1 week
[2016-10-05] MEDS: *HR* Enoxaparin 40 MG/0.4 ML SYRINGE SQ SCH (06:16)
[2016-10-05] MEDS: Insulin DETEMIR 100 UNIT/ML X5UNITS SQ SCH (08:41)
[2016-10-05] MEDS: Pregabalin 75 MG CAPSULE PO SCH ×2 (08:43→20:45)
[2016-10-05] MEDS: *HR* Metformin 500 MG TABLET PO SCH ×3 (08:44→18:28)
[2016-10-05] MEDS: *HR* Morphine Sulfate SR (12 HR) 30 MG TABLET.ER PO SCH ×3 (08:45→20:45)
[2016-10-05] MEDS: Tiotropium 18 MCG inhalation IH SCH (09:00)
[2016-10-05] MEDS: Insulin LISPRO 300 UNITS/3 ML VIAL SQ SCH ×4 (09:22→20:46)
[2016-10-05 12:13] LABS: ANA IgG by ELISA NONE DETECTED (None Detected)
--- NOTE | 2016-10-05 12:42 | Internal Med Progress Note ---
Date of Encounter: 10/05/16 Time of Encounter: 12:30 - Assessment and plan (1) Weakness Current Visit: Yes Status: Acute Assessment and plan: October 03. Awaiting PT and OT evaluation. October 04. Continue PT and OT intervention. He states he was able to take a few steps today. October 05. He states he took a few steps today. I told him I did not think he could safely return to the home environment this time. He seemed open to staying a facility for a few weeks until he improves. (2) Weight loss Current Visit: Yes Status: Acute Assessment and plan: October 03. CT did not show evidence of malignancy. Hemoglobin A1c was significantly elevated. Suspect weight loss due at least in part to uncontrolled hyperglycemia. October 05. His oral intake is good and weight has stabilized. (3) DM type 2 (diabetes mellitus, type 2) Current Visit: Yes Status: Chronic Assessment and plan: October 03. Hemoglobin A1c greater than 14.1%. He is uncertain of his home dose of Lantus. He states he misses his Lantus dose a few times a week. Will increase Levemir to 45 units daily at bedtime. October 04. He reported morning hypoglycemia. I will decrease Levemir to 18 units twice a day. October 05. 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 Continue inhalers. Check room air oximetry before discharge. Qualifiers: COPD type: unspecified COPD Qualified Code(s): J44.9 - Chronic obstructive pulmonary disease, unspecified - Subjective Interval history: October 03. He has no new complaints. He states he feels tired. He reports he has not had a bowel movement in a week. October 04. He has no new complaints. October 05. He has no new complaints and feels overall improved - Constitutional Vitals: Temp Pulse Resp BP Pulse Ox 97.8 F 84 12 109/74 95 10/05/16 11:09 10/05/16 11:09 10/05/16 11:09 10/05/16 11:10/05/16 11:09 Exam: He is resting comfortably in bed. His affect is bright and cheerful. I reviewed his medications and lab results. Internal Medicine: Result - Labs CBC & Chem 7: 10/02/16 05:00 10/02/16 05:00 - ABG Interpretation ABG results: PT/INR, D-dimer PT 10.6 Seconds (9.4-12.1) 10/02/16 05:00 Consult Discharge Plan - Plan Referrals: Nirali Russell, PERFORMANCE SPECIALIST [Primary Care Provider] - 1 week
[2016-10-05] MEDS ORDERED: Simethicone 80 MG TAB.CHEW PO PRN (18:20)
[2016-10-05] MEDS ORDERED: Insulin DETEMIR 100 UNIT/ML per UNIT SQ SCH (21:00)
[2016-10-06] MEDS: *HR* Enoxaparin 40 MG/0.4 ML SYRINGE SQ SCH (06:03)
[2016-10-06 06:12] VITALS: BP 118/79
[2016-10-06] MEDS: *HR* Morphine Sulfate SR (12 HR) 30 MG TABLET.ER PO SCH (08:50)
[2016-10-06] MEDS: Pregabalin 75 MG CAPSULE PO SCH (08:50)
[2016-10-06] MEDS: *HR* Metformin 500 MG TABLET PO SCH (08:50)
[2016-10-06] MEDS: Insulin LISPRO 300 UNITS/3 ML VIAL SQ SCH ×2 (09:00→11:21)
[2016-10-06] MEDS ORDERED: Insulin DETEMIR 100 UNIT/ML X5UNITS SQ SCH ×2 (09:00)
[2016-10-06] MEDS: Tiotropium 18 MCG inhalation IH SCH (09:09)
[2016-10-06] MEDS ORDERED: Bisacodyl 10 MG RECTAL SUPPOSITORY RC ONE (11:47)
--- NOTE | 2016-10-06 11:57 | Discharge Summary ---
Date of Encounter: 10/06/16 Time of Encounter: 11:40 - Discharge Diagnosis (1) Weakness Priority: Primary Status: Acute (2) Weight loss Priority: Secondary Status: Acute (3) DM type 2 (diabetes mellitus, type 2) Priority: Secondary Status: Chronic Qualifiers: Diabetes mellitus complication status: without complication Diabetes mellitus long term care administrator insulin use: with long term care administrator use Qualified Code(s): E11.9 - Type 2 diabetes mellitus without complications; Z79.4 - residential (current) use of insulin (4) COPD (chronic obstructive pulmonary disease) Priority: Secondary Status: Chronic Qualifiers: COPD type: unspecified COPD Qualified Code(s): J44.9 - Chronic obstructive pulmonary disease, unspecified - Discharge Medications Prescriptions: Morphine Sulfate SR (12 HR) [MS Contin] 30 mg PO TID #180 tablet.er Pregabalin [Lyrica] 75 mg PO BID #60 capsule Home Medications: Tiotropium [Spiriva] 1 cap IH DAILY PRN 04/18/16 [History] Albuterol Sulfate [Ventolin Hfa] 2 puff IH Q4H PRN 06/07/16 [History] Insulin ASPART [Novolog Flexpen] 0 unit SQ TIDWM 06/07/16 [History] Omeprazole [PriLOSEC] 20 mg PO DAILY 06/07/16 [History] Insulin Glargine,Hum.rec.anlog [Lantus Solostar] 20 units SQ HS #0 10/06/16 [Rx ] MOM Conc [MILK OF MAGNESIA conc] 15 ml PO Q48H #0 ud.liq 10/06/16 [Rx] Morphine Sulfate SR (12 HR) [MS Contin] 30 mg PO TID #180 tablet.er 10/06/16 [Rx ] Pregabalin [Lyrica] 75 mg PO BID #60 capsule 10/06/16 [Rx] Simethicone [Gas-X] 80 mg PO Q6HR PRN #0 tab.chew 10/06/16 [Rx] metFORMIN [Glucophage] 1,000 mg PO BIDWM 365 Days 10/06/16 [Rx] Allergies/Adverse Reactions: Allergies No Known Allergies Allergy (Verified 06/07/16 07:36) Date of admission: 10/03/16 18:11 Primary care physician: Nirali Russell CNP - Patient Status Disposition: Transfer SNF Condition: Good Functional capacity at discharge: uses cane/walker Overall status at discharge: patient is progressing back to baseline - Discharge Instructions - Diet and Activity Activity: as per physical therapy Diet: advance to your usual diet Hospital course: Mr. Carlin is a 50 year old male who was brought to emergency room after being found lying on the floor in his home by friends and family. He does not recall the circumstances of getting to the floor. He states he has had progressive weakness over the last 6 months and uses a cane and walker to ambulate in his trailer. He does not really leave the trailer much to go outdoors. He was evaluated in emergency room and admitted to [facility] for ongoing care needs. Initial orders were written by the emergency room physician. I saw him on October 02 and performed the history and physical. He had physical therapy and occupational therapy evaluation with ongoing interventions. He made satisfactory progress and it was felt he would benefit from ongoing therapy. He was agreeable to go to a SNF to receive therapy. Workup for his weakness included CK, TSH and sedimentation rate which were normal. CT of the chest abdomen pelvis was done to further evaluate his reported weight loss and weakness. There was dependent groundglass and nodular opacities at the lung bases associated with bronchiectasis and minimal debris within the trachea. No worrisome masses or lymphadenopathy reported. Lipid profile showed total cholesterol 160, triglycerides 73, HDL 44, and total/ HDL ratio 3.6. Hemoglobin A1c returned elevated at 14.1%. His diabetic regimen was adjusted during hospitalization. He will be on increased Glucophage at discharge at 1000 mg twice a day. Lantus dose will be reduced to 20 units at bedtime. Blood sugar will be monitored at the assisted. He will be discharged to [facility] and follow with me there. - Time Spent with Patient Total time spent providing and/or coordinating discharge services: - Constitutional Vitals: Temp Pulse Resp BP Pulse Ox 98.6 F 87 15 118/79 97 10/06/16 06:10 10/06/16 06:10 10/06/16 09:14 10/06/16 06:10 10/06/16 09:14
--- NOTE | 2016-10-06 12:06 | Physician Discharge Referral ---
ExtendedCare Referral Info Transfer To: [facility] Provider in Charge: Sean Provider in Charge after Transfer: PCP (Sean) - Diagnosis (1) Weakness Priority: Primary Status: Acute (2) Weight loss Priority: Secondary Status: Acute (3) DM type 2 (diabetes mellitus, type 2) Priority: Secondary Status: Chronic (4) COPD (chronic obstructive pulmonary disease) Priority: Secondary Status: Chronic Prognosis: Good Aware of Diagnosis: Patient Aware of Prognosis: Patient - Transfer Medications Prescriptions: Morphine Sulfate SR (12 HR) [MS Contin] 30 mg PO TID #180 tablet.er Pregabalin [Lyrica] 75 mg PO BID #60 capsule Home Medications: Tiotropium [Spiriva] 1 cap IH DAILY PRN 04/18/16 [History] Albuterol Sulfate [Ventolin Hfa] 2 puff IH Q4H PRN 06/07/16 [History] Insulin ASPART [Novolog Flexpen] 0 unit SQ TIDWM 06/07/16 [History] Omeprazole [PriLOSEC] 20 mg PO DAILY 06/07/16 [History] Insulin Glargine,Hum.rec.anlog [Lantus Solostar] 20 units SQ HS #0 10/06/16 [Rx ] MOM Conc [MILK OF MAGNESIA conc] 15 ml PO Q48H #0 ud.liq 10/06/16 [Rx] Morphine Sulfate SR (12 HR) [MS Contin] 30 mg PO TID #180 tablet.er 10/06/16 [Rx ] Pregabalin [Lyrica] 75 mg PO BID #60 capsule 10/06/16 [Rx] Simethicone [Gas-X] 80 mg PO Q6HR PRN #0 tab.chew 10/06/16 [Rx] metFORMIN [Glucophage] 1,000 mg PO BIDWM 365 Days 10/06/16 [Rx] Allergies/Adverse Reactions: Allergies No Known Allergies Allergy (Verified 06/07/16 07:36) - Respiratory Orders Smoking Cessation: Smoking cessation has been advised. For more information, call the [place] Tobacco Quit Line at 7-464-NCIE-NOW. - Mobility Orders Ambulate - Rehabiliation Orders Rehab Potential: Good Rehab Orders: Evaluation for Physical Therapy, Evaluation for Occupational Therapy - Treatments List/Other: Accu-Cheks before meals and at bedtime with SSI coverage. - Diet Orders Regular CERTIFICATION: I certify that the transfer of the above named patient to an Extended Care Facility is necessary for the continuing treatment of the diagnosis listed. The above information is true and accurate reflection of patient's current condition. Confidential - Redisclosure prohibited without a patient's written consent.
== END 2016-10-06 12:50 ==
LOC: EMEROOPIK 11:04 → INPPIK 11:04
PROVIDERS: ADMIT Internal Medicine; ATTEND Internal Medicine

== ENCOUNTER 2017-01-28 15:13 | Observation (INO) ==
[2017-01-28] MEDS ORDERED: 0.9 % Sodium Chloride 500 ML IVC ONE (15:25)
--- NOTE | 2017-01-28 15:31 | Emergency Department Note ---
Disposition Clinical Impression: Hyperglycemia, Weight loss, Weakness Disposition: Admitted As Inpatient Condition: Good Forms: ED Satisfaction Letter, Work/School Release Time of Disposition: 16:32 General Adult HPI - General Chief complaint: ED General Medical Stated complaint: diaphoretic Time Seen by Provider: 01/28/17 15:22 Source: patient, EMS Limitations: no limitations - History of Present Illness HPI Narrative: Patient presents to the emergency Department for reported generalized weakness and decreased by mouth intake. Patient had been admitted to this facility in October and was reportedly discharged to an ECF. He reportedly has been out of ECF for approximately one month. He presents today via EMS secondary to nausea with generalized myalgias and decreased by mouth intake. He is alert and oriented to person place and time. He complains of generalized pain, he states that is chronic and unchanged. He states he has not had an appetite and has had occasional vomiting. Pain Scale: 0 - Related Data Home Medications Medication Instructions Recorded Confirmed No Known Home Drugs 01/28/17 01/28/17 Allergies Allergy/AdvReac Type Severity Reaction Status Date / Time No Known Allergies Allergy Verified 06/07/16 07:36 Constitutional: Reports: weakness. Denies: fever, chills Eyes: Denies: vision change ENT ED: Denies: ear pain Cardiovascular: Denies: chest pain, palpitations Respiratory: Denies: cough, dyspnea Gastrointestinal: Reports: nausea, vomiting. Denies: abdominal pain, diarrhea, melena, hematochezia Genitourinary: Reports: frequency Musculoskeletal: Denies: back pain, neck pain Integumentary: Denies: rash Neurological: Denies: headache, weakness, numbness, paresthesias Past Medical History - Past Medical History Source: patient Medical history: Reports: asthma, COPD, diabetes, GERD, hyperlipidemia Surgical history: Reports: no surgical history Psychiatric history: Reports: anxiety, depression - Social History Smoking Status: Current every day smoker Smokeless Tobacco Status: No Alcohol use: Reports: none Drug use: Reports: none Physical Exam - General Limitations: no limitations General appearance: alert, in no apparent distress (Patient is generally malnourished and cachectic appearing) - Head Head exam: atraumatic, normocephalic, normal inspection - Eye Eye exam: Present: PERRL, EOMI. Absent: scleral icterus - ENT ENT exam: mucous membranes dry, TM's normal bilaterally - Neck Neck exam: Present: normal inspection, full ROM. Absent: tenderness, meningismus - Respiratory Respiratory exam: Present: other (Basilar rhonchi) - Cardiovascular Cardiovascular exam: Present: regular rate, normal rhythm, normal heart sounds - Abdominal Exam Abdominal exam: Present: soft, Non-Tender. Absent: tenderness, distention, guarding, rebound, rigidity - Extremities Exam Extremities exam: Present: normal inspection, full ROM. Absent: joint swelling , calf tenderness - Neurological Exam Neurological exam: Present: alert, oriented X3, CN II-XII intact - Skin Skin exam: Present: warm, dry, intact, normal color. Absent: rash Course Vital Signs Temperature 98.0 F 01/28/17 15:14 Pulse Rate 100 01/28/17 15:14 Respiratory Rate 14 01/28/17 15:14 Blood Pressure 123/86 01/28/17 15:14 O2 Sat by Pulse Oximetry 98 01/28/17 15:14 Temperature 98.0 F 01/28/17 15:14 Pulse Rate 100 01/28/17 15:14 Respiratory Rate 14 01/28/17 15:14 Blood Pressure 123/86 01/28/17 15:14 O2 Sat by Pulse Oximetry 98 01/28/17 15:14 Oxygen Delivery Oxygen Delivery Room Air Medical Decision Making - Medical Records Spouse states when I checked on the patient today he was lying his own feces too weak to stand. Patient will be admitted to the hospitalist service secondary to dehydration, hyperglycemia, failure to thrive - Lab Data Result diagrams: 01/28/17 15:43 01/28/17 15:43 Lab Results 01/28/17 01/28/17 01/28/17 Range/Units 15:43 15:43 15:43 WBC (4.3-11.1) K/mcL RBC (4.19-5.50) M/mcL Hgb (12.9-16.9) g/dL Hct (37.5-50.1) % MCV (83.0-100.0) fL MCH (28.0-33.3) pg MCHC (31.6-35.5) g/dL RDW (11.5-14.5) % Plt Count (140-400) K/mcL MPV (9.4-12.4) fL Immature Gran % (0-4) % Seg Neutrophils % % Lymphocytes % % Monocytes % % Eosinophils % % Basophils % % Neutrophils # (1.6-8.9) K/mcL Lymphocytes # (0.6-4.6) K/mcL Monocytes # (0.0-1.3) K/mcL Eosinophils # (0.0-0.6) K/mcL Basophils # (0.0-0.2) K/mcL PT 9.8 (9.4-12.1) Seconds INR 0.9 APTT 26.8 (26.0-36.0) Seconds VBG pH (7.32-7.42) pH Units VBG pCO2 (41-51) mmHg VBG pO2 (25-40) mmHg VBG HCO3 (21-27) mEq/L Sodium (136-145) mEq/L Potassium (3.5-4.5) mEq/L Chloride (98-109) mEq/L Carbon Dioxide (19-29) mEq/L BUN (8-26) mg/dL Creatinine (0.72-1.25) mg/dL Est GFR ( Amer) (> 60) Est GFR (Non-Af Amer) (> 60) BUN/Creatinine Ratio (6-26) Glucose (70-99) mg/dL Calculated Osmolality (280-300) Calcium (8.6-10.8) mg/dL Total Bilirubin 0.5 (0.2-1.2) mg/dL Direct Bilirubin 0.2 (0.0-0.5) mg/dL Indirect Bilirubin 0.3 (0.0-1.2) mg/dL AST 11 (5-34) Units/L ALT 41 (0-55) Units/L Alkaline Phosphatase 85 (38-126) Units/L Creatine Kinase (30-200) Units/L Troponin I (0-0.03) ng/mL Serum Total Protein 5.9 L (6.0-8.3) g/dL Albumin 3.3 L (3.5-5.0) g/dL Globulin 2.6 (2.4-3.5) g/dL Albumin/Globulin Ratio 1.3 (1.1-2.2) Lipase 36 (8-78) Units/L Beta-Hydroxybutyric Acd (0.02-0.27) mmol/L Urine Color (Yellow) Urine Clarity (Clear) Urine pH (5.0-8.0) pH Units Ur Specific Reading (1.010-1.025) Urine Protein (Neg-Trace) mg/dL Urine Glucose (UA) (Normal) mg/dL Urine Ketones (Negative) mg/dL Urine Blood (Negative) Urine Nitrite (Negative) Urine Bilirubin (Negative) Urine Urobilinogen (Normal) mg/dL Ur Leukocyte Esterase (Negative) Ur Culture Indicated? (NO) 01/28/17 01/28/17 01/28/17 Range/Units 15:43 15:43 15:43 WBC 9.1 (4.3-11.1) K/mcL RBC 5.31 (4.19-5.50) M/mcL Hgb 16.6 (12.9-16.9) g/dL Hct 49.5 (37.5-50.1) % MCV 93.2 (83.0-100.0) fL MCH 31.3 (28.0-33.3) pg MCHC 33.5 (31.6-35.5) g/dL RDW 12.1 (11.5-14.5) % Plt Count 487 H (140-400) K/mcL MPV 10.0 (9.4-12.4) fL Immature Gran % 0.4 (0-4) % Seg Neutrophils % 70.1 % Lymphocytes % 25.0 % Monocytes % 3.5 % Eosinophils % 0.6 % Basophils % 0.4 % Neutrophils # 6.3 (1.6-8.9) K/mcL Lymphocytes # 2.3 (0.6-4.6) K/mcL Monocytes # 0.3 (0.0-1.3) K/mcL Eosinophils # 0.1 (0.0-0.6) K/mcL Basophils # 0.0 (0.0-0.2) K/mcL PT (9.4-12.1) Seconds INR APTT (26.0-36.0) Seconds VBG pH (7.32-7.42) pH Units VBG pCO2 (41-51) mmHg VBG pO2 (25-40) mmHg VBG HCO3 (21-27) mEq/L Sodium 137 (136-145) mEq/L Potassium 4.3 (3.5-4.5) mEq/L Chloride 99 (98-109) mEq/L Carbon Dioxide 25 (19-29) mEq/L BUN 17 (8-26) mg/dL Creatinine 0.69 L (0.72-1.25) mg/dL Est GFR ( Amer) > 60 (> 60) Est GFR (Non-Af Amer) > 60 (> 60) BUN/Creatinine Ratio 25 (6-26) Glucose 493 H (70-99) mg/dL Calculated Osmolality 307 H (280-300) Calcium 8.8 (8.6-10.8) mg/dL Total Bilirubin (0.2-1.2) mg/dL Direct Bilirubin (0.0-0.5) mg/dL Indirect Bilirubin (0.0-1.2) mg/dL AST (5-34) Units/L ALT (0-55) Units/L Alkaline Phosphatase (38-126) Units/L Creatine Kinase (30-200) Units/L Troponin I 0.01 (0-0.03) ng/mL Serum Total Protein (6.0-8.3) g/dL Albumin (3.5-5.0) g/dL Globulin (2.4-3.5) g/dL Albumin/Globulin Ratio (1.1-2.2) Lipase (8-78) Units/L Beta-Hydroxybutyric Acd (0.02-0.27) mmol/L Urine Color (Yellow) Urine Clarity (Clear) Urine pH (5.0-8.0) pH Units Ur Specific Reading (1.010-1.025) Urine Protein (Neg-Trace) mg/dL Urine Glucose (UA) (Normal) mg/dL Urine Ketones (Negative) mg/dL Urine Blood (Negative) Urine Nitrite (Negative) Urine Bilirubin (Negative) Urine Urobilinogen (Normal) mg/dL Ur Leukocyte Esterase (Negative) Ur Culture Indicated? (NO) 01/28/17 01/28/17 01/28/17 Range/Units 15:43 15:43 15:43 WBC (4.3-11.1) K/mcL RBC (4.19-5.50) M/mcL Hgb (12.9-16.9) g/dL Hct (37.5-50.1) % MCV (83.0-100.0) fL MCH (28.0-33.3) pg MCHC (31.6-35.5) g/dL RDW (11.5-14.5) % Plt Count (140-400) K/mcL MPV (9.4-12.4) fL Immature Gran % (0-4) % Seg Neutrophils % % Lymphocytes % % Monocytes % % Eosinophils % % Basophils % % Neutrophils # (1.6-8.9) K/mcL Lymphocytes # (0.6-4.6) K/mcL Monocytes # (0.0-1.3) K/mcL Eosinophils # (0.0-0.6) K/mcL Basophils # (0.0-0.2) K/mcL PT (9.4-12.1) Seconds INR APTT (26.0-36.0) Seconds VBG pH 7.42 (7.32-7.42) pH Units VBG pCO2 46.8 (41-51) mmHg VBG pO2 42.2 H (25-40) mmHg VBG HCO3 31 H (21-27) mEq/L Sodium (136-145) mEq/L Potassium (3.5-4.5) mEq/L Chloride (98-109) mEq/L Carbon Dioxide (19-29) mEq/L BUN (8-26) mg/dL Creatinine (0.72-1.25) mg/dL Est GFR ( Amer) (> 60) Est GFR (Non-Af Amer) (> 60) BUN/Creatinine Ratio (6-26) Glucose (70-99) mg/dL Calculated Osmolality (280-300) Calcium (8.6-10.8) mg/dL Total Bilirubin (0.2-1.2) mg/dL Direct Bilirubin (0.0-0.5) mg/dL Indirect Bilirubin (0.0-1.2) mg/dL AST (5-34) Units/L ALT (0-55) Units/L Alkaline Phosphatase (38-126) Units/L Creatine Kinase 20 L (30-200) Units/L Troponin I (0-0.03) ng/mL Serum Total Protein (6.0-8.3) g/dL Albumin (3.5-5.0) g/dL Globulin (2.4-3.5) g/dL Albumin/Globulin Ratio (1.1-2.2) Lipase (8-78) Units/L Beta-Hydroxybutyric Acd 1.19 H (0.02-0.27) mmol/L Urine Color (Yellow) Urine Clarity (Clear) Urine pH (5.0-8.0) pH Units Ur Specific Reading (1.010-1.025) Urine Protein (Neg-Trace) mg/dL Urine Glucose (UA) (Normal) mg/dL Urine Ketones (Negative) mg/dL Urine Blood (Negative) Urine Nitrite (Negative) Urine Bilirubin (Negative) Urine Urobilinogen (Normal) mg/dL Ur Leukocyte Esterase (Negative) Ur Culture Indicated? (NO) 01/28/17 Range/Units 16:12 WBC (4.3-11.1) K/mcL RBC (4.19-5.50) M/mcL Hgb (12.9-16.9) g/dL Hct (37.5-50.1) % MCV (83.0-100.0) fL MCH (28.0-33.3) pg MCHC (31.6-35.5) g/dL RDW (11.5-14.5) % Plt Count (140-400) K/mcL MPV (9.4-12.4) fL Immature Gran % (0-4) % Seg Neutrophils % % Lymphocytes % % Monocytes % % Eosinophils % % Basophils % % Neutrophils # (1.6-8.9) K/mcL Lymphocytes # (0.6-4.6) K/mcL Monocytes # (0.0-1.3) K/mcL Eosinophils # (0.0-0.6) K/mcL Basophils # (0.0-0.2) K/mcL PT (9.4-12.1) Seconds INR APTT (26.0-36.0) Seconds VBG pH (7.32-7.42) pH Units VBG pCO2 (41-51) mmHg VBG pO2 (25-40) mmHg VBG HCO3 (21-27) mEq/L Sodium (136-145) mEq/L Potassium (3.5-4.5) mEq/L Chloride (98-109) mEq/L Carbon Dioxide (19-29) mEq/L BUN (8-26) mg/dL Creatinine (0.72-1.25) mg/dL Est GFR ( Amer) (> 60) Est GFR (Non-Af Amer) (> 60) BUN/Creatinine Ratio (6-26) Glucose (70-99) mg/dL Calculated Osmolality (280-300) Calcium (8.6-10.8) mg/dL Total Bilirubin (0.2-1.2) mg/dL Direct Bilirubin (0.0-0.5) mg/dL Indirect Bilirubin (0.0-1.2) mg/dL AST (5-34) Units/L ALT (0-55) Units/L Alkaline Phosphatase (38-126) Units/L Creatine Kinase (30-200) Units/L Troponin I (0-0.03) ng/mL Serum Total Protein (6.0-8.3) g/dL Albumin (3.5-5.0) g/dL Globulin (2.4-3.5) g/dL Albumin/Globulin Ratio (1.1-2.2) Lipase (8-78) Units/L Beta-Hydroxybutyric Acd (0.02-0.27) mmol/L Urine Color Yellow (Yellow) Urine Clarity Clear (Clear) Urine pH 6.0 (5.0-8.0) pH Units Ur Specific Reading 1.015 (1.010-1.025) Urine Protein Negative (Neg-Trace) mg/dL Urine Glucose (UA) 500 H (Normal) mg/dL Urine Ketones 15 H (Negative) mg/dL Urine Blood Negative (Negative) Urine Nitrite Negative (Negative) Urine Bilirubin Negative (Negative) Urine Urobilinogen Normal (Normal) mg/dL Ur Leukocyte Esterase Negative (Negative) Ur Culture Indicated? NO (NO) ITS Impressions Chest X-Ray 01/28/17 15:26 IMPRESSION: No acute cardiopulmonary disease. COPD. D/ /28/2017 16:01:20 Hoa Mauricio MD / hansa Interpreting Provider: Hoa Mauricio MD
[2017-01-28 15:52] LABS: Basophils % 0.4 %; Eosinophils # 0.1 K/mcL (0.0-0.6); Eosinophils % 0.6 %; Hematocrit 49.5 % (37.5-50.1); Hemoglobin 16.6 g/dL (12.9-16.9); Immature Granulocytes % 0.4 % (0-4); Lymphocytes # 2.3 K/mcL (0.6-4.6); Mean Corpuscular HGB Conc 33.5 g/dL (31.6-35.5); Mean Corpuscular Hemoglobin 31.3 pg (28.0-33.3); Mean Corpuscular Volume 93.2 fL (83.0-100.0); Monocytes # 0.3 K/mcL (0.0-1.3); Monocytes % 3.5 %; Neutrophils # 6.3 K/mcL (1.6-8.9); Platelet Count 487 K/mcL (140-400); Red Blood Count 5.31 M/mcL (4.19-5.50); Red Cell Distribution Width 12.1 % (11.5-14.5); Segmented Neutrophils % 70.1 %
[2017-01-28 15:57] LABS: VBG PCO2 46.8 mmHg (41-51); VBG PH 7.42 pH Units (7.32-7.42); VBG PO2 42.2 mmHg (25-40)
[2017-01-28 15:58] LABS: INR 0.9; Prothrombin Time 9.8 Seconds (9.4-12.1)
[2017-01-28 16:01] LABS: Activated Partial Thrombo Time 26.8 Seconds (26.0-36.0)
[2017-01-28 16:07] LABS: BUN/Creatinine Ratio 25 (6-26); Blood Urea Nitrogen 17 mg/dL (8-26); Calcium 8.8 mg/dL (8.6-10.8); Carbon Dioxide 25 mEq/L (19-29); Chloride 99 mEq/L (98-109); Glucose 493 mg/dL (70-99); Osmolality,Calculated 307 (280-300); Potassium 4.3 mEq/L (3.5-4.5); Sodium 137 mEq/L (136-145); eGFR For African Americans > 60 (> 60); eGFR For Non-African Americans > 60 (> 60)
[2017-01-28 16:10] LABS: Albumin 3.3 g/dL (3.5-5.0); Albumin/Globulin Ratio 1.3 (1.1-2.2); Bilirubin,Direct 0.2 mg/dL (0.0-0.5); Bilirubin,Indirect 0.3 mg/dL (0.0-1.2); Bilirubin,Total 0.5 mg/dL (0.2-1.2); Globulin 2.6 g/dL (2.4-3.5); Total Protein 5.9 g/dL (6.0-8.3)
[2017-01-28 16:19] LABS: Bilirubin,Urine Negative (Negative); Blood,Urine Negative (Negative); Clarity,Urine Clear (Clear); Color,Urine Yellow (Yellow); Glucose,Urine (UA) 500 mg/dL (Normal); Ketones,Urine 15 mg/dL (Negative); Leukocyte Esterase,Urine Negative (Negative); Nitrite,Urine Negative (Negative); Protein,Urine Negative (Neg-Trace); Specific Gravity,Urine 1.015 (1.010-1.025); Urobilinogen,Urine Normal (Normal)
[2017-01-28 16:28] LABS: Amphetamine Screen,Urine Negative ng/mL (Cutoff=1000); Barbiturate Screen,Urine Negative ng/mL (Cutoff=200); Benzodiazepines Screen,Urine Negative ng/mL (Cutoff=200); Cannabinoid Screen,Urine Negative ng/mL (Cutoff = 50); Cocaine Screen,Urine Negative ng/mL (Cutoff= 300); Opiate Screen,Urine Positive ng/mL (Cutoff=300); Phencyclidine Screen,Urine Negative ng/mL (Cutoff=25)
[2017-01-28] MEDS ORDERED: Insulin Human Regular 10 UNIT in 0.9 % Sodium Chloride 10 ML IV ONE (16:30)
[2017-01-28] MEDS ORDERED: Naloxone 0.4 MG/ML INJ IVP PRN (16:33)
[2017-01-28] MEDS: 0.9 % Sodium Chloride 1,000 ML IVC SCH (17:11)
[2017-01-28] MEDS ORDERED: *HR* Dextrose 50 % in Water (Syg) 50 ML SYRINGE IVP PRN (18:37)
[2017-01-28] MEDS ORDERED: Dextrose Gel 15 GM PO PRN ×2 (18:37)
[2017-01-28] MEDS ORDERED: D5% in Water 1,000 ML IVC PRN (18:37)
[2017-01-28] MEDS: Insulin LISPRO 300 UNITS/3 ML VIAL SQ SCH ×2 (19:01→22:02)
[2017-01-28] MEDS: *HR* HYDROcodone/Acet 5/325 mg TABLET PO PRN (19:08)
[2017-01-29] MEDS: 0.9 % Sodium Chloride 1,000 ML IVC SCH (04:06)
[2017-01-29] MEDS: *HR* HYDROcodone/Acet 5/325 mg TABLET PO PRN ×5 (04:37→21:51)
[2017-01-29 06:57] LABS: Basophils % 0.4 %; Eosinophils # 0.1 K/mcL (0.0-0.6); Eosinophils % 0.7 %; Hematocrit 41.7 % (37.5-50.1); Hemoglobin 14.7 g/dL (12.9-16.9); Immature Granulocytes % 0.4 % (0-4); Lymphocytes # 3.6 K/mcL (0.6-4.6); Lymphocytes % 36.6 %; Mean Corpuscular HGB Conc 35.3 g/dL (31.6-35.5); Mean Corpuscular Hemoglobin 30.9 pg (28.0-33.3); Mean Corpuscular Volume 87.8 fL (83.0-100.0); Mean Platelet Volume 10.7 fL (9.4-12.4); Monocytes # 0.3 K/mcL (0.0-1.3); Monocytes % 2.8 %; Neutrophils # 5.8 K/mcL (1.6-8.9); Platelet Count 295 K/mcL (140-400); Red Blood Count 4.75 M/mcL (4.19-5.50); Red Cell Distribution Width 11.9 % (11.5-14.5); Segmented Neutrophils % 59.1 %
[2017-01-29 07:12] LABS: BUN/Creatinine Ratio 32 (6-26); Blood Urea Nitrogen 17 mg/dL (8-26); Calcium 8.3 mg/dL (8.6-10.8); Carbon Dioxide 23 mEq/L (19-29); Chloride 101 mEq/L (98-109); Glucose 280 mg/dL (70-99); Magnesium 1.6 mg/dL (1.6-2.6); Osmolality,Calculated 290 (280-300); Phosphorous 2.4 mg/dL (2.3-4.7); Potassium 3.7 mEq/L (3.5-4.5); Sodium 134 mEq/L (136-145); eGFR For African Americans > 60 (> 60); eGFR For Non-African Americans > 60 (> 60)
[2017-01-29] MEDS: Insulin LISPRO 300 UNITS/3 ML VIAL SQ SCH ×4 (08:52→19:35)
--- NOTE | 2017-01-29 11:34 | Internal Med History&Physical ---
Date of Encounter: 01/29/17 Time of Encounter: 11:05 Assessment and Plan (1) Weakness Current visit: Yes Status: Acute He will have physical therapy and occupational therapy evaluation. IV fluids will be given. Further workup will be done as needed. (2) Weight loss Current visit: Yes Status: Acute TSH was normal at 0.558 on 10/01/2016. We will give IV fluids and encourage oral intake. (3) DM type 2 (diabetes mellitus, type 2) Current visit: No Status: Chronic We will check hemoglobin A1c in a.m. 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 Will give NicoDerm patch and check room air oximetry prior to discharge. Qualifiers: COPD type: unspecified COPD Qualified Code(s): J44.9 - Chronic obstructive pulmonary disease, unspecified Internal Medicine - H&P: HPI Chief complaint: Weakness Admitted From: Home Plans for Post Hospital Care: Home History of present illness: Mr. Carlin is a 51 year old male who came to emergency room stating he had gotten progressively weaker since leaving [facility] approximately one month ago. He initially stated he was living alone and could not prepare food but then changed his story and stated he had been living with family and simply became too weak to eat. He reports he had followed up with his PCP Nirali Russell CNP on 2 occasions since leaving the group home. She had referred him to pain clinic but he had not kept the appointment. He states he has been out of all of his medications except using some leftover morphine from a previous prescription. He was evaluated in emergency room and admitted to [facility] floor until further disposition could be obtained. He was hospitalized last at [facility] September 2016 with weakness. He reported at that time he lost approximately 50 pounds in the preceding 6 months. He has lost approximately 20 pounds since discharge from [facility] to the group home. He states he "hurts all over". He denies alcohol use vomiting or diarrhea. He states his last alcohol intake was approximately one year ago. Denied IV drug use at his last admission. Past Med Surg Social Fam HX - Past Medical History Medical history: asthma, COPD, diabetes, GERD, hyperlipidemia Psychiatric history: anxiety, depression - Past Surgical History Surgical History: no surgical history - Social History Smoking Status: Current every day smoker Packs per day: .5 Smokeless Tobacco Status: No Alcohol use: none Drug use: none Internal Medicine - H&P: Meds No Known Home Drugs 01/28/17 [History] 3 Allergy/AdvReac Type Severity Reaction Status Date / Time No Known Allergies Allergy Verified 06/07/16 07:36 All Systems PM: A 10-system review of systems was performed and is negative for pertinent findings except as documented above in the HPI. Review of systems: Review of systems from his September 2016 [facility] hospitalization were reviewed and revised as below. Gen.: He reports weight loss as per above. CT of the chest abdomen pelvis was done during last admission to further evaluate his reported weight loss and weakness. There was dependent groundglass and nodular opacities at the lung bases associated with bronchiectasis and minimal debris within the trachea. No worrisome masses or lymphadenopathy reported. Cardiovascular: He denies hypertension CA heart failure DVT or pulmonary embolism. He states he occasionally gets chest pain ambulating in his trailer. Respiratory: His smoked since age 11 up to 2 packs per day. He states he has had a nonproductive cough for several weeks to months. He reports being diagnosed with COPD in the past but does not recall when PFTs were done. He does not use home oxygen. GI: He denies disorders of his liver gallbladder or exocrine pancreas : He denies hematuria dysuria or kidney stones Neurologic: He denies large distribution strokes or seizures. Endocrine: He was diagnosed with DM 2 approximately 5 years ago. Hemoglobin A1c was greater than 14.1% on 10/03/2016. He denies thyroid disease or hyperlipidemia Hematology/oncology: He denies blood disorders cancers or anemia Psychiatric: He reports anxiety and depression. He has been seen at mental health clinic in the past but does not presently take antipsychotic drugs. Musk skeletal: He states he has chronic low back pain. He denies arthritis gout or other bone joint or muscle disorders other than generalized weakness. - Constitutional Vitals: Temp Pulse Resp BP Pulse Ox 98.1 F 90 17 119/80 97 01/29/17 10:13 01/29/17 10:13 01/29/17 10:13 01/29/17 10:13 01/29/17 10:13 Exam: Gen.: He is a well-developed cachectic male lying in bed who appears in mild to moderate discomfort HEENT head is atraumatic and normal cephalic. Eyes: EOMI. There is no scleral icterus. Mouth: Mucosa is moist. Neck: Supple and nontender. There is no thyromegaly or adenopathy noted. Heart: Regular without murmurs gallops or ectopics Lungs: No wheezes or crackles are heard. He has diminished breath sounds diffusely. Abdomen: Mild tenderness noted diffusely. The abdomen is scaphoid. Extremities: There is no cyanosis edema or clubbing noted. Dorsalis pedis and posterior tibial pulses are trace palpable bilaterally. His feet are warm to touch. Neurologic: Mental status: He is talkative and able to answer a few questions. He appears to be in significant pain and is not really conversational. Cranial nerves: Facial movements are symmetric. Forehead wrinkles bilaterally. Tongue protrudes midline EOMI. Motor: There is no pronator drift. Cerebellar: Clear to nose is intact bilaterally. Skin: Warm and dry. He has multiple tattoos. Internal Med - H&P Results - Labs CBC & Chem 7: 01/29/17 05:00 01/29/17 05:00 Labs: Short CBC 01/29/17 Range/Units 05:00 WBC 9.9 (4.3-11.1) K/mcL Hgb 14.7 D (12.9-16.9) g/dL Hct 41.7 (37.5-50.1) % Plt Count 295 (140-400) K/mcL Neutrophils # 5.8 (1.6-8.9) K/mcL BMP 01/29/17 05:00 Sodium 134 L Potassium 3.7 Chloride 101 Carbon Dioxide 23 BUN 17 Creatinine 0.53 L Glucose 280 H Calcium 8.3 L
[2017-01-29] MEDS ORDERED: Pregabalin 75 MG CAPSULE PO SCH (11:45)
--- NOTE | 2017-01-29 11:58 | Electrocardiograph Report ---
[address] [place], [place] [address] Test Date: 2017-01-28 Pat Name: Magdy Carlin Department: [id number] Room: [facility] Gender: M Frame Trimmer: : [id number] Requested By: Codey Ruvalcaba Order Number: [id number] Reading MD: Sandra Godwin Measurements Intervals [place]oe Rate: 94 P: 79 MT: 137 QRS: -85 QRSD: 85 T: 77 QT: 364 QTc: 416 Interpretive Statements SINUS RHYTHM LOW QRS VOLTAGE IN EXTREMITY LEADS INFERIOR MYOCARDIAL INFARCTION, OF INDETERMINATE AGE WITH POSTERIOR EXTENSION Electronically Signed On 01-29-2017 11:57:36 EDT by Sandra Godwin
[2017-01-29] MEDS: 0.45 % Sodium Chloride w/KCl 20 MEQ/1,000 ML MLS IVC SCH ×2 (12:48→21:56)
[2017-01-29] MEDS: Albuterol 2.5 MG/3 ML NEBULIZER IH PRN (13:46)
[2017-01-29] MEDS: Pregabalin 75 MG CAPSULE PO SCH (19:41)
[2017-01-30] MEDS: *HR* HYDROcodone/Acet 5/325 mg TABLET PO PRN ×3 (04:03→11:53)
[2017-01-30 07:01] VITALS: BP 113/79
[2017-01-30] MEDS: Insulin LISPRO 300 UNITS/3 ML VIAL SQ SCH (08:12)
[2017-01-30] MEDS: Pregabalin 75 MG CAPSULE PO SCH (08:14)
[2017-01-30] MEDS: 0.45 % Sodium Chloride w/KCl 20 MEQ/1,000 ML MLS IVC SCH (08:15)
[2017-01-30] MEDS: Albuterol 2.5 MG/3 ML NEBULIZER IH PRN (08:46)
--- NOTE | 2017-01-30 10:38 | Discharge Summary ---
Date of Encounter: 01/30/17 Time of Encounter: 10:20 - Discharge Diagnosis (1) Weakness Priority: Primary Status: Acute (2) Weight loss Priority: Secondary Status: Acute (3) DM type 2 (diabetes mellitus, type 2) Priority: Secondary Status: Chronic Qualifiers: Diabetes mellitus complication status: without complication Diabetes mellitus terminal operator insulin use: with terminal operator use Qualified Code(s): E11.9 - Type 2 diabetes mellitus without complications; Z79.4 - skilled nursing (current) use of insulin (4) COPD (chronic obstructive pulmonary disease) Priority: Secondary Status: Chronic Qualifiers: COPD type: unspecified COPD Qualified Code(s): J44.9 - Chronic obstructive pulmonary disease, unspecified - Discharge Medications Prescriptions: HYDROcodone/Acet 5/325 mg [Rialto 5-325 mg] 1 tab PO Q6H PRN #12 tab PRN Reason: Pain Pregabalin [Lyrica] 75 mg PO TID #9 capsule Home Medications: Calcium Carbonate/Simethicone 80 mg PO QID PRN 01/29/17 [History] Dok 100 mg PO HS 01/29/17 [History] Duloxetine HCl 60 mg PO DAILY 01/29/17 [History] Glucophage 1,000 mg PO BID 01/29/17 [History] Humalog 2 - 10 units SQ ACHS 01/29/17 [History] Lantus Solostar 20 units SQ HS 01/29/17 [History] Lyrica 150 mg PO TID 01/29/17 [History] Milk of Magnesia 400 mg PO 01/29/17 [History] Morphine Sulfate ER 60 mg PO TID 01/29/17 [History] Mucinex 600 mg PO Q12HR 01/29/17 [History] Omeprazole 20 mg PO DAILY 01/29/17 [History] Spiriva 18 mcg IH BID 01/29/17 [History] Ventolin Hfa 2 puff IH Q4HR PRN 01/29/17 [History] HYDROcodone/Acet 5/325 mg [Rialto 5-325 mg] 1 tab PO Q6H PRN #12 tab 01/30/17 [Rx ] Pregabalin [Lyrica] 75 mg PO TID #9 capsule 01/30/17 [Rx] Allergies/Adverse Reactions: 3 Allergy/AdvReac Type Severity Reaction Status Date / Time No Known Allergies Allergy Verified 06/07/16 07:36 Date of admission: 01/28/17 16:58 Primary care physician: Nirali Russell CNP Consults: 01/29/17 11:46 Consult to Occupational Therapy [CONS] Routine Comment: Evaluate, develop and implement POC Reason for Consult: Weakness Consult to Physical Therapy [CONS] Routine Comment: Evaluate, develop and implement POC Reason for Consult: Weakness - Patient Status Disposition: Home Health Service Condition: Good Overall status at discharge: patient is progressing back to baseline - Discharge Instructions Follow Up With: Nirali Russell CNP [Primary Care Provider] - 1 week - Diet and Activity Activity: resume usual activities as tolerated Diet: advance to your usual diet Hospital course: Mr. Carlin is a 51 year old male who came to emergency room stating he had gotten progressively weaker since leaving [facility] approximately one month ago. He initially stated he was living alone and could not prepare food but then changed his story and stated he had been living with family and simply became too weak to eat. He reports he had followed up with his PCP Nirali Russell CNP on 2 occasions since leaving the [facility]. She had referred him to pain clinic but he had not kept the appointment. He states he has been out of all of his medications except using some leftover morphine from a previous prescription. He was evaluated in emergency room and admitted to [facility] floor until further disposition could be obtained. Initial orders were written by the emergency room physician. I saw him on January 29 and performed a history and physical. He was started on Lyrica 75 mg 3 times a day. Rialto 5/325 was made available for prn use. He had physical therapy and occupational therapy evaluations. Social service consult was made and arrangements were made for him to have home health services at discharge. On January 30 he was felt medically stable for discharge home. He will follow with his PCP Nirali Russell CNP within 1 week. - Time Spent with Patient Total time spent providing and/or coordinating discharge services: - Constitutional Vitals: Temp Pulse Resp BP Pulse Ox 98.6 F 81 16 113/79 97 01/30/17 06:53 01/30/17 06:53 01/30/17 08:46 01/30/17 06:53 01/30/17 08:46
--- NOTE | 2017-01-30 10:42 | Physician Discharge Referral ---
Home Health/Hosp Referral Info Transfer to: Home Health Attending Provider: Sean Provider in Charge Post Discharge: PCP (Nirali Russell CNP) - Diagnosis (1) Weakness Priority: Primary Status: Acute (2) Weight loss Priority: Secondary Status: Acute (3) DM type 2 (diabetes mellitus, type 2) Priority: Secondary Status: Chronic (4) COPD (chronic obstructive pulmonary disease) Priority: Secondary Status: Chronic - Respiratory Orders Smoking Cessation: Smoking cessation has been advised. For more information, call the [place] [employer] Quit Line at 7-397-FSJN-NOW. - Diet/Nutrition Diet/Nutrition Orders: Regular - Activity Activity Orders: Ambulate - Services Needed Following services are medically necessary services: Nursing, Home Health Aide, Physical Therapy, Occupational Therapy - Transfer Medications Prescriptions: HYDROcodone/Acet 5/325 mg [[place] 5-325 mg] 1 tab PO Q6H PRN #12 tab PRN Reason: Pain Pregabalin [Lyrica] 75 mg PO TID #9 capsule Home Medications: Calcium Carbonate/Simethicone 80 mg PO QID PRN 01/29/17 [History] Dok 100 mg PO HS 01/29/17 [History] Duloxetine HCl 60 mg PO DAILY 01/29/17 [History] Glucophage 1,000 mg PO BID 01/29/17 [History] Humalog 2 - 10 units SQ ACHS 01/29/17 [History] Lantus Solostar 20 units SQ HS 01/29/17 [History] Lyrica 150 mg PO TID 01/29/17 [History] Milk of Magnesia 400 mg PO 01/29/17 [History] Morphine Sulfate ER 60 mg PO TID 01/29/17 [History] Mucinex 600 mg PO Q12HR 01/29/17 [History] Omeprazole 20 mg PO DAILY 01/29/17 [History] Spiriva 18 mcg IH BID 01/29/17 [History] Ventolin Hfa 2 puff IH Q4HR PRN 01/29/17 [History] HYDROcodone/Acet 5/325 mg [[place] 5-325 mg] 1 tab PO Q6H PRN #12 tab 01/30/17 [Rx ] Pregabalin [Lyrica] 75 mg PO TID #9 capsule 01/30/17 [Rx] Allergies/Adverse Reactions: 3 Allergy/AdvReac Type Severity Reaction Status Date / Time No Known Allergies Allergy Verified 06/07/16 07:36 Certification: Further, I certify that my clinical findings support that this patient is homebound (i.e. absences from home require considerable and taxing effort and are for medical reasons or mu-ism services or infrequently or short duration when for other reasons) because: Homebound Reason: Leaving home requires considerable and taxing effort due to condition (Impaired walking ability) Attestation: My signature below is to certify that this patient is under my care and that I, or nurse practitioner, or a physician's unit assistant working with me, has a face-to -face encounter with this patient.
== END 2017-01-30 12:00 | disposition home health service (06) ==
LOC: INPPIK 15:13 → EMEROOPIK 15:13 → INPPIK 17:48
PROVIDERS: ADMIT Internal Medicine; ATTEND Internal Medicine